=== PATIENT | female | born 1995 ===

== ENCOUNTER 2025-07-11 16:19 | Emergency (ER) | payer SELFPAY ==
[2025-07-11 16:34] VITALS: BP 120/84; PULSE 69; RESP 20; TEMP 36.9; O2SAT 98
--- NOTE | 2025-07-11 16:55 | PD.EDRME ---
Rapid Medical Screening Exam RME Arrival date/time: 07/11/25 16:19 Chief Complaint: Vaginal Bleeding Time Seen by Provider: 07/11/25 16:43 Vital signs: Vital Signs Temperature 98.4 F 07/11/25 16:34 Pulse Rate 69 07/11/25 16:34 Respiratory Rate 20 07/11/25 16:34 Blood Pressure 120/84 07/11/25 16:34 Pulse Oximetry (%) 98 07/11/25 16:34 Oxygen Delivery Method Room Air 07/11/25 16:34 RME Narrative: 30yo female here for vaginal bleeding today. She is , unsure on dates 06/01/25. [id number]. Worried about blood due to being dizzy. States she does not have an ob appt yet.
--- NOTE | 2025-07-11 17:07 | PC.NURSE ---
Pt stated she did not want to stay because she did not want to get blood work done.
== END 2025-07-11 17:10 | disposition left against medical advice (07) ==
LOC: SERX 17:50
PROVIDERS: Emergency Provider Emergency Medicine
DX: O46.90 Antepartum hemorrhage, unspecified, unspecified trimester (principal); R42 Dizziness and giddiness
CPT/HCPCS: 80053; 80307; 81001; 84702; 85025; 86900; 86901; 99281